=== PATIENT | female | born 1980 | race Caucasian/White ===

== ENCOUNTER 2017-09-08 15:00 | Emergency (ER) | payer OTHER ==
[2017-09-08] MEDS ORDERED: Sodium Chloride 0.9% 10 ML Syringe FLUSH PRN (15:36)
[2017-09-08] MEDS ORDERED: HYDROmorphone 0.5 MG/0.5 ML SYRINGE IVPUSH ONE ×2 (15:39→17:53)
[2017-09-08] MEDS ORDERED: Iopamidol 755 Mg/ML 100 ML Bottle IVPUSH ONE (15:42)
[2017-09-08] MEDS ORDERED: Iopamidol 755 MG/ML 50 ML Bottle IVPUSH ONE (15:42)
[2017-09-08] MEDS ORDERED: Sodium Chloride 0.9% 10 ML Syringe FLUSH ONE (15:42)
[2017-09-08] MEDS ORDERED: Sodium Chloride 0.9% 1,000 ML IV SCH (15:45)
[2017-09-08] MEDS ORDERED: Sodium Chloride 0.9% 250 ML IV SCH (15:45)
--- NOTE | 2017-09-08 16:16 | EDM.PDOC ---
ED HPI GENERAL MEDICAL PROBLEM - General Chief Complaint: Chest Pain Stated Complaint: POST-SURGICAL ISSUES Time Seen by Provider: 09/08/17 15:13 Source of Information: Reports: Patient History Limitations: Reports: No Limitations - History of Present Illness INITIAL COMMENTS - FREE TEXT/NARRATIVE: The patient presents with bilateral chest pain. This started yesterday after surgery. The patient had bilateral fallopian tube removal for control by Dr Starr in [place]. She woke up after general anaesthesia with the pain. It was 08/16. She was discharged and the pain has gotten worse. She is short of breath. The pain is made worse by deep breathing. She has no lower abdominal pain where she had surgery. She has no nausea or vomiting but she is not eating or drinking much because that makes it worse. She has no edema or pain in her legs. 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 She has no fever, chills or cough. She has no diarrhea or dysuria. She does not have a gallbladder anymore. Onset: Sudden Duration: Day(s): (Yesterday after surgery) Location: Reports: Chest Quality: Reports: Sharp Severity: Moderate Improves with: Reports: Immobilization Worsens with: Reports: Breathing Context: Reports: Other (after surgery) Associated Symptoms: Reports: Chest Pain, Shortness of Breath. 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 - Past Surgical History GI Surgical History: Reports: Cholecystectomy Social & Family History - Family History Family Medical History: Noncontributory - Tobacco Use Smoking Status *Q: Current Some Day Smoker Years of Tobacco use: 5 Packs/Tins Daily: 0.1 Used Tobacco, but Quit: Yes Month/Year Tobacco Last Used: Tobacco Use Comment: smokes socially Second Hand Smoke Exposure: Yes - Caffeine Use Caffeine Use: Reports: Coffee - Alcohol Use Days Per Week of Alcohol Use: 0 - Recreational Drug Use Recreational Drug Use: No ED ROS GENERAL - Review of Systems Review Of Systems: See Below Constitutional: Reports: No Symptoms HEENT: Reports: No Symptoms Respiratory: Reports: Shortness of Breath. Denies: Cough Cardiovascular: Reports: Chest Pain Endocrine: Reports: No Symptoms GI/Abdominal: Reports: No Symptoms : Reports: No Symptoms Musculoskeletal: Reports: No Symptoms ED EXAM, GENERAL - Physical Exam Exam: See Below Exam Limited By: No Limitations General Appearance: Alert, No Apparent Distress Ears: Normal External Exam Nose: Normal Inspection Head: Atraumatic, Normocephalic Neck: Normal Inspection Respiratory/Chest: No Respiratory Distress, Lungs Clear, Normal Breath Sounds Cardiovascular: Regular Rate, Rhythm, No Edema, No Murmur GI/Abdominal: Soft, Non-Tender, No Organomegaly, No Mass Extremities: Normal Inspection EKG INTERPRETATION EKG Date: 09/08/17 Time: 15:44 Rhythm: NSR Rate (Beats/Min): 68 [place]: Normal P-Wave: Present QRS: Normal ST-T: Normal QT: Normal EKG Interpretation Comments: Sinus arrhythmia Course - Vital Signs Last Recorded V/S: Last Vital Signs Temp 98.6 F 09/08/17 15:10 Pulse 69 09/08/17 15:10 Resp 18 09/08/17 15:10 BP 139/82 09/08/17 15:10 Pulse Ox 98 09/08/17 15:10 - Orders/Labs/Meds Orders: Active Orders 24 hr Category Date Time Status Cardiac Monitoring [RC] . DIRECTED Care 09/08/17 15:37 Active EKG Documentation Completion [RC] STAT Care 09/08/17 15:38 Active Oxygen Therapy [RC] PRN Care 09/08/17 15:37 Active Peripheral IV Care [RC] . DIRECTED Care 09/08/17 15:38 Active Ang Chest [CT] Stat Exams 09/08/17 15:39 Taken Sodium Chloride 0.9% [Normal Saline] 1,000 ml Med 09/08/17 15:45 Active IV ASDIRECTED Sodium Chloride 0.9% [Normal Saline] 250 ml Med 09/08/17 15:45 Active IV ASDIRECTED Sodium Chloride 0.9% [Saline Flush] Med 09/08/17 15:36 Active 10 ml FLUSH ASDIRECTED PRN Peripheral IV Insertion Adult [OM.PC] Stat Oth 09/08/17 15:36 Ordered Medication Orders Sodium Chloride (Normal Saline) 1,000 mls @ 125 mls/hr IV ASDIRECTED NATASHA Last Admin: 09/08/17 16:07 Dose: 125 mls/hr Sodium Chloride (Normal Saline) 250 mls @ 80 mls/min IV ASDIRECTED NATASHA Last Admin: 09/08/17 16:04 Dose: 80 mls/min Sodium Chloride (Saline Flush) 10 ml FLUSH ASDIRECTED PRN PRN Reason: Keep Vein Open Last Admin: 09/08/17 16:07 Dose: 10 ml Labs: Laboratory Tests 09/08/17 09/08/17 Range/Units 16:44 16:44 WBC 11.31 H (3.98-10.04) K/mm3 RBC 4.32 (3.98-5.22) M/mm3 Hgb 11.4 (11.2-15.7) gm/L Hct 35.7 (34.1-44.9) % MCV 82.6 (79.4-94.8) fl MCH 26.4 (25.6-32.2) pg MCHC 31.9 L (32.2-35.5) g/dl RDW Std Deviation 51.2 H (36.4-46.3) fL Plt Count 258 (182-369) K/mm3 MPV 10.2 (9.4-12.3) fl Neut % (Auto) 58.1 (34.0-71.1) % Lymph % (Auto) 32.3 (19.3-51.7) % [place] % (Auto) 8.6 (4.7-12.5) % Eos % (Auto) 0.6 L (0.7-5.8) Baso % (Auto) 0.2 (0.1-1.2) % Neut # (Auto) 6.58 H (1.56-6.13) K/mm3 Lymph # (Auto) 3.65 (1.18-3.74) K/mm3 [place] # (Auto) 0.97 H (0.24-0.36) K/mm3 Eos # (Auto) 0.07 (0.04-0.36) K/mm3 Baso # (Auto) 0.02 (0.01-0.08) K/mm3 Sodium 139 (136-145) mEq/L Potassium 3.8 (3.5-5.1) mEq/L Chloride 107 (98-107) mEq/L Carbon Dioxide 22 (21-32) mEq/L Anion Gap 13.8 (5-15) BUN 17 (7-18) mg/dL Creatinine 0.8 (0.55-1.02) mg/dL Est Cr Clr Drug Dosing 88.32 mL/min Estimated GFR (MDRD) > 60 (>60) mL/min BUN/Creatinine Ratio 21.3 H (14-18) Glucose 79 (74-106) mg/dL Calcium 8.3 L (8.5-10.1) mg/dL Total Bilirubin 0.2 (0.2-1.0) mg/dL AST 43 H (15-37) U/L ALT 126 H (14-59) U/L Alkaline Phosphatase 86 (46-116) U/L Troponin I < 0.017 (0.00-0.056) ng/mL Total Protein 6.9 (6.4-8.2) g/dl Albumin 3.2 L (3.4-5.0) g/dl Globulin 3.7 gm/dL Albumin/Globulin Ratio 0.9 L (1-2) Meds: Medications Generic Name Dose Route Start Last Admin Trade Name Freq PRN Reason Stop Dose Admin Sodium Chloride 1,000 mls @ 125 mls/hr 09/08/17 15:45 09/08/17 16:07 Normal Saline IV 125 mls/hr ASDIRECTED NATASHA Administration Sodium Chloride 250 mls @ 80 mls/min 09/08/17 15:45 09/08/17 16:04 Normal Saline IV 80 mls/min ASDIRECTED NATASHA Administration Sodium Chloride 10 ml 09/08/17 15:36 09/08/17 16:07 Saline Flush FLUSH 10 ml ASDIRECTED PRN Administration Keep Vein Open Discontinued Medications Generic Name Dose Route Start Last Admin Trade Name Freq PRN Reason Stop Dose Admin Hydromorphone HCl 1 mg 09/08/17 15:39 09/08/17 16:07 Dilaudid IVPUSH 09/08/17 15:40 1 mg ONETIME ONE Administration Iopamidol 100 ml 09/08/17 15:42 09/08/17 16:04 [id number] (76%) IVPUSH 09/08/17 15:43 70 ml ONETIME ONE Administration Iopamidol 50 ml 09/08/17 15:42 09/08/17 16:03 Isovue-370 (76%) IVPUSH 09/08/17 15:43 10 ml ONETIME ONE Administration Sodium Chloride 10 ml 09/08/17 15:42 09/08/17 16:03 Saline Flush FLUSH 09/08/17 15:43 10 ml ONETIME ONE Administration - Re-Assessments/Exams Free Text/Narrative Re-Assessment/Exam: 09/08/17 16:17 I ordered an IV NS at 125mL/hr, dilaudid 0.5mg IV, EKG, chest CT and labs. Her EKG shows a sinus arrhythmia with no acute changes. 09/08/17 17:49 Her WBC was slightly elevated at 11.31. Her AST was elevated at 43. Her ALT was elevated at 126. Her troponin was negative. Her CT shows no pulmonary embolism. She did have some pneumoperitoneum. She feels better now but is is not gone. I will give her some toradol and another dose of dilaludid 0.5mg IV. Departure - Departure Time of Disposition: 18:00 Disposition: Home, Self-Care 01 Condition: Good Clinical Impression: Surgical pneumoperitoneum Chest pain Qualifiers: Chest pain type: unspecified Qualified Code(s): R07.9 - Chest pain, unspecified Referrals: PCP,None [Primary Care Provider] - Forms: ED Department Discharge Additional Instructions: Take your medication as prescribed. Take a stool softner as needed to avoid constipation. Please return if you are worse. - My Orders Last 24 Hours: My Active Orders 09/08/17 15:36 Sodium Chloride 0.9% [Saline Flush] 10 ml FLUSH ASDIRECTED PRN Peripheral IV Insertion Adult [OM.PC] Stat 09/08/17 15:37 Cardiac Monitoring [RC] . DIRECTED Oxygen Therapy [RC] PRN 09/08/17 15:38 EKG Documentation Completion [RC] STAT Peripheral IV Care [RC] . DIRECTED 09/08/17 15:39 Ang Chest [CT] Stat 09/08/17 15:45 Sodium Chloride 0.9% [Normal Saline] 1,000 ml IV ASDIRECTED Sodium Chloride 0.9% [Normal Saline] 250 ml IV ASDIRECTED - Assessment/Plan Last 24 Hours: My Active Orders 09/08/17 15:36 Sodium Chloride 0.9% [Saline Flush] 10 ml FLUSH ASDIRECTED PRN Peripheral IV Insertion Adult [OM.PC] Stat 09/08/17 15:37 Cardiac Monitoring [RC] . DIRECTED Oxygen Therapy [RC] PRN 09/08/17 15:38 EKG Documentation Completion [RC] STAT Peripheral IV Care [RC] . DIRECTED 09/08/17 15:39 Ang Chest [CT] Stat 09/08/17 15:45 Sodium Chloride 0.9% [Normal Saline] 1,000 ml IV ASDIRECTED Sodium Chloride 0.9% [Normal Saline] 250 ml IV ASDIRECTED
[2017-09-08] MEDS ORDERED: Ketorolac 30 MG/ML SDV IVPUSH ONE (17:53)
[2017-09-08 18:15] VITALS: BP 133/72
--- NOTE | 2017-09-09 08:07 | CT ---
CT chest Technique: Multiple axial sections through the chest are obtained. Intravenous contrast was utilized. Study has been performed as a pulmonary angiogram protocol. Findings: Small amount of free air is seen within the upper abdomen compatible with recent abdominal surgery. Pulmonary arteries are well-opacified. No filling defects are seen to indicate pulmonary embolism. No aneurysm is seen within the aorta. No mediastinal or hilar adenopathy is seen. No pericardial thickening is seen. Lungs are clear with no acute parenchymal change. No pleural effusions are seen. Impression: 1. No findings of pulmonary embolism. 2. Free air within the abdomen most likely from previous abdominal surgery. 3. No additional abnormality is seen on CT study of the chest. Diagnostic code #2 I agree with preliminary report issued by [facility] ([facility] preliminary report dictated on 09/08/17, 6:45 PM Central Time)
== END 2017-09-08 18:10 | disposition home or self-care (01) ==
LOC: JD.ED 15:00
DX: K66.8 Other specified disorders of peritoneum (principal); F17.210 Nicotine dependence, cigarettes, uncomplicated; Z88.6 Allergy status to analgesic agent
CPT/HCPCS: 36415; 71275; 80053; 84484; 85025; 93005; 96361; 96374; 96375; 96376; 99285; J1170; J1885; J7040; J7050; Q9967

== ENCOUNTER 2019-05-05 12:57 | Emergency (ER) | payer OTHER ==
--- NOTE | 2019-05-05 13:14 | EDM.PDOC ---
ED HPI GENERAL MEDICAL PROBLEM - General Chief Complaint: General Stated Complaint: NEEDS PAIN MED ALLERGIC TO MED GIVEN BY [facility] Time Seen by Provider: 05/05/19 13:14 Source of Information: Reports: Patient History Limitations: Reports: No Limitations - History of Present Illness INITIAL COMMENTS - FREE TEXT/NARRATIVE: 38-year-old female presents to the ED for evaluation of diffuse right sided chest pain radiating into her right upper back and shoulder. This came on rather suddenly 3-4 days ago. She was seen in the walk-in clinic yesterday and prescribed meloxicam 15 mg once daily , however after taking the first tablet , within the hour she started feeling very unwell with nausea and generalized hot flush and development of a temporary rash particularly noted on her abdomen and face. Her diagnosis He therefore was fearful of taking any further medication. Patient states that the pain is worsened by deep breathing. She feels like she has a low-grade fever but is afebrile at this time. She does have a mild cough. Onset: Sudden Onset Date: 05/02/19 Duration: Day(s):, Constant Location: Reports: Chest (8), Back ( anterior lateral chest and parasternal area as well as in her right upper back.), Other (No pain on the left side.) Quality: Reports: Ache, Burning, Other Severity: Moderate (7 out of 10) Improves with: Reports: Rest Worsens with: Reports: Movement Context: Reports: Other (Spontaneous occurrence). Denies: Activity (Movement such as putting on her jacket or deep breathing make the pain worse), Exercise, Lifting, Sick Contact, Trauma Associated Symptoms: Reports: Chest Pain (Diffuse right anterior lateral chest pain radiating into her back), Cough, Fever/Chills (Subjective fever), Malaise. 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) Right Back Pain Score (Numeric/FACES): 6 - Related Data Allergies Allergy/AdvReac Type Severity Reaction Status Date / Time tramadol Allergy Mild Numbness Verified 09/08/17 15:07 meloxicam Allergy Nausea Verified 05/05/19 13:13 Home Meds: Home Meds Cyclobenzaprine [Flexeril] 10 mg PO BEDTIME #5 tab 05/05/19 [Rx] Iron 05/05/19 [History] oxyCODONE HCl/Acetaminophen [Percocet 5-325 mg Tablet] 1 - 2 each PO Q4H PRN # 16 tablet 05/05/19 [Rx] predniSONE [Prednisone] 20 mg PO ASDIRECTED #15 tablet 05/05/19 [Rx] Past Medical History - Past Health History Medical/Surgical History: Denies 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 - Past Surgical History GI Surgical History: Reports: Cholecystectomy Social & Family History - Family History Family Medical History: Noncontributory - Caffeine Use Caffeine Use: Reports: Coffee - Living Situation & Occupation Living situation: Reports: Occupation: Employed ED ROS GENERAL - Review of Systems Review Of Systems: See Below Constitutional: Reports: Fever, Malaise (Subjective fever but afebrile at the time my exam.), Fatigue. Denies: Chills, Decreased Appetite HEENT: Reports: No Symptoms Respiratory: Reports: Shortness of Breath, Pleuritic Chest Pain, Cough, Sputum ( Mild). Denies: Wheezing, Hemoptysis ( minimal) Cardiovascular: Reports: Chest Pain (Diffuse right anterior lateral chest pain) . Denies: Blood Pressure Problem, Dyspnea on Exertion, Edema, Lightheadedness, Orthopnea Endocrine: Reports: Fatigue GI/Abdominal: Reports: No Symptoms : Reports: No Symptoms Musculoskeletal: Reports: Back Pain (Views right parasternal back pain with the onset of the right anterior lateral chest pain.) Skin: Reports: No Symptoms Neurological: Reports: No Symptoms Psychiatric: Reports: No Symptoms Hematologic/Lymphatic: Reports: No Symptoms Immunologic: Reports: No Symptoms ED EXAM, GENERAL - Physical Exam Exam: See Below Exam Limited By: No Limitations General Appearance: Alert, WD/WN, No Apparent Distress, Other (Dentures 36.6 with a heart rate of 80. Respiratory 16 and sats of 98% on room air. BP is normal at 128/88.) Throat/Mouth: Normal Inspection, Normal Lips, Normal Oropharynx Head: Atraumatic, Normocephalic Neck: Normal Inspection, Supple, Non-Tender, Full Range of Motion. No: Lymphadenopathy (L), Lymphadenopathy (R), Thyromegaly Respiratory/Chest: No Respiratory Distress, Lungs Clear, Normal Breath Sounds, No Accessory Muscle Use, Other (Marked chest wall tenderness on palpation of right anterior chest particularly ribs 4,5, 6 and 7 midclavicular line) Cardiovascular: Normal Peripheral Pulses, Regular Rate, Rhythm, No Edema, No Gallop, No Murmur, No Rub Peripheral Pulses: 3+: Posterior Tibial (L), Posterior Tibial (R), Dorsalis Pedis (L), Dorsalis Pedis (R) Back Exam: Other (Heart tenderness along the paraspinal area right side particularly starting at thoracic level V. Tenderness all way down to thoracic 10 on the right side with mild paraspinal muscle spasm appreciated. No tenderness elicited on palpation of the left side of the spine.) Extremities: Normal Inspection, Normal Range of Motion, Non-Tender, No Pedal Edema Neurological: Alert, Oriented, CN II-XII Intact, Normal Cognition, Normal Gait Psychiatric: Normal Affect, Normal Mood Skin Exam: Warm, Dry, Intact, Normal Color, No Rash EKG INTERPRETATION EKG Date: 05/05/19 Time: 13:38 Rhythm: NSR Rate (Beats/Min): 68 [place]: Normal P-Wave: Enlarged (Severe left atrial hypertrophy.) QRS: Other ST-T: Normal (Meghan poor R-wave progression likely a normal variant. Consider old anteroseptal myocardial infarction) QT: Normal EKG Interpretation Comments: Borderline ECG. On comparison with ECG done in September 2017 the changes in V1 and V2 noted on today's ECG were present at that time Course - Vital Signs Last Recorded V/S: Last Vital Signs Temp 36.6 C 05/05/19 13:09 Pulse 80 05/05/19 13:09 Resp 16 05/05/19 13:09 BP 128/88 05/05/19 13:09 Pulse Ox 98 05/05/19 13:09 - Orders/Labs/Meds Orders: Active Orders 24 hr Category Date Time Status EKG Documentation Completion [RC] STAT Care 05/05/19 13:31 Active Chest 2V [CR] Stat Exams 05/05/19 13:24 Taken Meds: Medications Discontinued Medications Generic Name Dose Route Start Last Admin Trade Name Freq PRN Reason Stop Dose Admin Ondansetron HCl 4 mg 05/05/19 13:26 05/05/19 13:33 Zofran Odt PO 05/05/19 13:27 4 mg ONETIME ONE Administration Oxycodone/Acetaminophen 2 tab 05/05/19 13:26 05/05/19 13:32 Percocet 325-5 Mg PO 05/05/19 13:27 2 tab ONETIME ONE Administration - Radiology Interpretation Free Text/Narrative:: 38-year-old female presents to the ED with diffuse right anterolateral chest pain and posterior thoracic pain over the rib heads from thoracic 5 to thoracic 11. She appears to have a rib head subluxation but she has diffuse tenderness in the right chest wall as well suggesting and inflammation of the periosteum of multiple ribs. I'll did cough and subjective fever. Plan two-view chest x- ray to be done and an ECG. Given 2 Percocet 5/325 mg tablets with Zofran 4 mg sublingual in the ED for acute pain relief. - Re-Assessments/Exams Free Text/Narrative Re-Assessment/Exam: 05/05/19 14:02 ECG is within normal limits. No signs of ischemia. Two-view chest x-ray is also normal. Patient appears to have a diffuse inflammation of the ostium of the ribs anterior lateral chest wall and diffuse pain throughout the rib heads from thoracic 5 to thoracic 11 and her back. Pain is sharp and pleuritic with deep inspiration on an intermittent basis. This suggests a viral inflammation of the chest wall. She has taken Motrin and Aleve in the past without issue. She will be instructed to continue with this. Going to place her on a short course of prednisone 20 mg twice a day for 5 days and then 1 in the morning only for another 5 days. Percocet tabs 5/325 mg 16 tablets provided for pain relief as needed. Flexeril 10 mg at bedtime as needed for muscle spasm. 5 tablets provided Departure - Departure Time of Disposition: 14:04 Disposition: Home, Self-Care 01 Condition: Fair Clinical Impression: Acute chest wall pain Acute thoracic back pain Qualifiers: Back pain laterality: right Qualified Code(s): M54.6 - Pain in thoracic spine - Discharge Information *PRESCRIPTION DRUG MONITORING PROGRAM REVIEWED*: Not Applicable *COPY OF PRESCRIPTION DRUG MONITORING REPORT IN PATIENT RONEN: Not Applicable Prescriptions: Cyclobenzaprine [Flexeril] 10 mg PO BEDTIME #5 tab oxyCODONE HCl/Acetaminophen [Percocet 5-325 mg Tablet] 1 - 2 each PO Q4H PRN # 16 tablet PRN Reason: pain relief. predniSONE [Prednisone] 20 mg PO ASDIRECTED #15 tablet Instructions: Acute Back Pain, Adult, Chest Wall Pain Referrals: PCP,None [Primary Care Provider] - Forms: ED Department Discharge Additional Instructions: Evaluation the emergent today in regards to adverse reaction to meloxicam. This medication was prescribed to reduce pain and inflammation in your back and chest wall in the clinic yesterday but unfortunately you have significant adverse effects to this medication and it should not be used further. Examination reveals diffuse chest wall tenderness particularly ribs 4-7 in the right midclavicular line and pain throat clear thoracic back from rib head #5 to #10 significant chest wall inflammation and facet joint information on the right side only. Heart tracing was within normal limits with no signs of heart related illness. Chest x-ray 2 view also proved to be completely normal. Treatment is to be pain medication Percocet I/325 mg tablet 1 or 2 every 4-6 hours as needed for pain relief. Prednisone 20 mg now and repeat at bedtime tonight then 1 tablet with breakfast and supper for another 4 days and then 1 tablet in the morning only for another 5 days to reduce inflammation and pain. Continue with Aleve 2 tablets every 8 hours or Motrin 6/Advil 600 mg every 6 hours to relieve pain and inflammation. Flexeril tablet 10 mg once daily at bedtime for the next 5 days to alleviate muscle spasm and pain and aid sleep. Expect gradual improvement over the next 48-72 hours with at least 80% reduction in pain. Follow-up with personal care physician if any other problems occur. Sepsis Event Note - Evaluation Sepsis Screening Result: No Definite Risk - Focused Exam Vital Signs: Vital Signs Temp Pulse Resp BP Pulse Ox 05/05/19 13:09 36.6 C 80 16 128/88 98 Date Exam was Performed: 05/05/19 Time Exam was Performed: 14:47 - My Orders Last 24 Hours: My Active Orders 05/05/19 13:24 Chest 2V [CR] Stat 05/05/19 13:31 EKG Documentation Completion [RC] STAT - Assessment/Plan Last 24 Hours: My Active Orders 05/05/19 13:24 Chest 2V [CR] Stat 05/05/19 13:31 EKG Documentation Completion [RC] STAT
[2019-05-05] MEDS ORDERED: Acetaminophen/oxyCODONE 325-5 MG Tab PO ONE (13:26)
[2019-05-05] MEDS ORDERED: Ondansetron 4 MG Tab.DIS PO ONE (13:26)
[2019-05-05 15:06] VITALS: BP 123/88; PULSE 60
--- NOTE | 2019-05-07 07:12 | CR ---
Chest: Two views of the chest were obtained. Comparison: Previous chest x-ray of 03/25/13. Heart size and mediastinum are normal. Lungs are clear. Bony structures appear within normal limits for the patient's age. Surgical clips are seen within the upper abdomen. Impression: 1. Nothing acute is seen on two-view chest x-ray. Diagnostic code #2 This report was dictated in [place] Standard Time
== END 2019-05-05 14:45 | disposition home or self-care (01) ==
LOC: JD.ED 12:57
DX: R07.89 Other chest pain (principal); M54.6 Pain in thoracic spine; Z88.8 Allergy status to other drugs, medicaments and biological substances
CPT/HCPCS: 71046; 93005; 99285; A9270; 93010; 99283

== ENCOUNTER 2021-07-25 21:45 | Emergency (ER) | payer BC, OTHER ==
[2021-07-25] MEDS ORDERED: Sodium Chloride 0.9% 10 ML SDV FLUSH ONE (22:36)
[2021-07-25] MEDS ORDERED: Iopamidol 755 Mg/ML 100 ML Bottle IVPUSH ONE (22:36)
[2021-07-25] MEDS ORDERED: Sodium Chloride 0.9% 100 ML IV SCH (22:45)
[2021-07-26 01:20] VITALS: BP 155/96; PULSE 105
== END 2021-07-26 02:30 | disposition home or self-care (01) ==
LOC: JD.ED 21:45
DX: R07.81 Pleurodynia (principal); M79.662 Pain in left lower leg; Z88.5 Allergy status to narcotic agent; Z88.8 Allergy status to other drugs, medicaments and biological substances
CPT/HCPCS: 36415; 71275; 80053; 84484; 85025; 85610; 85730; 93005; 93971; 99284; Q9967; 93010; 99285